=== PATIENT | male | born 1960 | race Hispanic/Latino ===

== ENCOUNTER 2017-05-13 19:27 | Emergency (ER) | payer MEDICAID, OTHER ==
--- NOTE | 2017-05-13 20:20 | ED PDOC ---
Lower Extremity Pain/Injury Time Seen by Provider: 05/13/17 20:04 Chief Complaint (Nursing): Lower Extremity Problem/Injury Chief Complaint (Provider): Lower Extremity Problem/Injury History Per: Patient History/Exam Limitations: no limitations Onset/Duration Of Symptoms: Mins (prior to arrival) Current Symptoms Are (Timing): Still Present Additional Complaint(s): 56 year old male with previous medical history of diabetes, who presents to the emergency department with a complaint of right-sided knee and ankle pain status post slipping on water and "twisting leg backwards" prior to arrival. Patient stated that he can hear crunching noise when walking but experience no pain at rest. PMD: Magali Del Cid MD Past Medical History Reviewed: Historical Data, Nursing Documentation, Vital Signs Vital Signs: Last Vital Signs Temp 98.2 F 05/13/17 19:29 Pulse 99 H 05/13/17 19:29 Resp 16 05/13/17 19:29 BP 155/90 H 05/13/17 19:29 Pulse Ox 99 05/13/17 19:29 - Medical History PMH: Diabetes - Surgical History Surgical History: Denies: No Surg Hx Other surgeries: right knee - Family History Family History: States: Unknown Family Hx - Home Medications Home Medications: Ambulatory Orders Medication Instructions Recorded Insulin Glargine,Hum.rec.anlog 40 units SUBCUT Q12 05/13/17 [Basaglar Kwikpen U-100] Liraglutide [Victoza 2-Jorge A] 1.8 mg SUBCUT DAILY 05/13/17 - Allergies Allergies/Adverse Reactions: Allergies Allergy/AdvReac Type Severity Reaction Status Date / Time No Known Allergies Allergy Verified 05/13/17 19:29 Review of Systems ROS Statement: Except As Marked, All Systems Reviewed And Found Negative Musculoskeletal: Positive for: Leg Pain (right-sided knee and ankle) Physical Exam - Reviewed Nursing Documentation Reviewed: Yes Vital Signs Reviewed: Yes - Physical Exam Extremity: Positive for: Tenderness (right-sided popliteal fossa and bilateral malleolus), Swelling (right knee significantly), Other (bilateral patella and neurovascularly intact with chronic venous stasis of right ankle). 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 Negative for: Motor/Sensory Deficits - Laboratory Results Result Diagrams: 05/13/17 22:00 05/13/17 21:20 - ECG O2 Sat by Pulse Oximetry: 99 (RA) Pulse Ox Interpretation: Normal Medical Decision Making Medical Decision Making: Initial Impression: Ligamentous strain vs. tear Initial Plan: * Xray knee (right) * Flexeril 10mg PO * Toradol 30mg iM * Xray ankle (right) ____ Time: 2009 --Equivocal valgus and varus tests secondary to significant swelling. Time: 2199 --Discussed case with Dr. Benjamin, ortho on-call, who recommended ortho- trauma specialty services that are not available at [facility]. Recommended transfer to [facility]. --Upon re-evaluation, patient is neurovascularly intact with good distal pulses. 2300 Intact pulses Patient refusing transfer to [facility], requesting transfer to [facility] 0000 Pulses remain intact Spoke with [facility] who accepts transfer, patient was able to tolerate knee immobilizer, states he felt "better" when leg was lengthened and pulled. Scribe Attestation: Documented by Torie Chaves, acting as a scribe for Louis Garcia MD. Provider Scribe Attestation: All medical record entries made by the Scribe were at my direction and personally dictated by me. I have reviewed the chart and agree that the record accurately reflects my personal performance of the history, physical exam, medical decision making, and the department course for this patient. I have also personally directed, reviewed, and agree with the discharge instructions and disposition Disposition - Clinical Impression Clinical Impression: Femoral distal fracture - Patient ED Disposition Is Patient to be Admitted: Transfer of Care - Disposition Disposition: Other Institution ([facility]) Disposition Time: 02:33 Condition: IMPROVED Forms: [employer] [facility] (Lithuanian)
[2017-05-13 21:48] LABS: BASO % 0.3 % (0.0-2.0); EOS # 0.1 K/uL (0.0-0.7); EOS % 0.5 % (0.0-4.0); HEMOGLOBIN 14.5 g/dL (12.0-18.0); LYMPH # 1.5 K/uL (1.0-4.3); LYMPH % 11.6 % (20.0-40.0); MEAN CELL VOLUME 82.7 fl (80.0-94.0); MEAN CORPUSCULAR HEMOGLOBIN 26.4 pg (27.0-31.0); MEAN PLATELET VOLUME 8.8 fl (7.2-11.7); MONO # 0.8 K/uL (0.0-0.8); MONO % 6.1 % (0.0-10.0); NEUT # 10.7 K/uL (1.8-7.0); NEUT % 81.5 % (50.0-75.0); RBC 5.5 Mil/uL (4.40-5.90); RED CELL DISTRIBUTION WIDTH 14.9 % (11.5-14.5); WHITE BLOOD COUNT 13.1 K/uL (4.8-10.8)
[2017-05-13] MEDS ORDERED: Morphine 4 MG/ML VIAL IVP STA (21:48)
[2017-05-13 22:00] LABS: BLOOD UREA NITROGEN 22 mg/dl (9-20); CALCIUM 9.4 mg/dL (8.4-10.2); GFR AFRICAN-AMERICAN > 60; GFR NON-AFRICAN AMERICAN > 60
[2017-05-13 22:11] LABS: PARTIAL THROMBOPLASTIN TIME 25.1 Seconds (25.6-37.1); PROTHROMBIN TIME 10.7 Seconds (9.8-13.1)
--- NOTE | 2017-05-13 23:17 | RAD ---
EXAM: XR Right Knee, 3 views CLINICAL HISTORY: 56 years old, male; Injury or trauma; Fall; Initial encounter; Blunt trauma; Knee; Right; Prior surgery; Surgery date: 6+ months; Surgery type: Rt. Knee @2012; Additional info: S/P slip and fall TECHNIQUE: Three views of the right knee. COMPARISON: No relevant prior studies available. FINDINGS: Bones/joints: There is an comminuted, displaced distal femoral fracture. The oblique fracture extends from the metadiaphysis to the metaphysis with overlapping fracture fragments. Surgical plate and screws transfix the proximal tibia. No dislocation. Soft tissues: Soft tissue swelling. IMPRESSION: Comminuted displaced distal femoral fracture with overlying fracture fragments
[2017-05-13] MEDS ORDERED: Morphine 4 MG/ML VIAL ONE (23:44)
[2017-05-14] MEDS ORDERED: diaZEpam 10 mg/2 ml Inj IVP ONE (00:51)
[2017-05-14] MEDS ORDERED: Midazolam 2 MG/2 ML VIAL ONE (01:04)
[2017-05-14] MEDS ORDERED: Midazolam 2 MG/2 ML VIAL IV ONE (01:12)
[2017-05-14 02:29] VITALS: BP 125/98; PULSE 88; RESP 18; TEMP 98.1
[2017-05-14 02:33] VITALS: O2SAT 99
--- NOTE | 2017-05-14 08:24 | CARD ---
APPROVED REPORT EKG Measurement Heart [id number] ME [id number] <Conclusion> Normal sinus rhythm Nonspecific T wave abnormality Abnormal ECG
--- NOTE | 2017-05-14 09:13 | RAD ---
PROCEDURE: Right Ankle Radiographs. HISTORY: s/p slip and fall COMPARISON: None FINDINGS: BONES: No acute fracture. JOINTS: Ankle mortise maintained. Talar dome intact SOFT TISSUES: Lateral malleolar soft tissue swelling. OTHER FINDINGS: Small Achilles enthesophyte. IMPRESSION: Lateral malleolar soft tissue swelling without demonstrated fracture or dislocation.
--- NOTE | 2017-05-14 09:15 | RAD ---
PROCEDURE: Right Femur Radiographs. HISTORY: fracture COMPARISON: None. TECHNIQUE: AP and Lateral Radiographs of the right femur. FINDINGS: FEMUR: Comminuted distal femoral fracture with posterior distraction of the distal fracture segment. Partially imaged proximal tibial orthopedic hardware. SOFT TISSUES: Soft tissue swelling. OTHER FINDINGS: None. IMPRESSION: Comminuted, posteriorly distracted distal femoral fracture.
--- NOTE | 2017-05-14 09:16 | RAD ---
PROCEDURE: Radiographs of the pelvis. HISTORY: s/p fall COMPARISON: None. FINDINGS: BONES: Pelvic Bones: Unremarkable. Hips: Joint space narrowing. JOINTS: Sacroiliac Joints: Unremarkable. Pubic Symphysis: Degenerative. OTHER FINDINGS: Retrievable type inferior vena cava filter. IMPRESSION: No demonstrated fracture or dislocation.
--- NOTE | 2017-05-14 09:17 | RAD ---
PROCEDURE: CHEST RADIOGRAPH, 1 VIEW HISTORY: s/p fall COMPARISON: Chest radiograph dated 07/25/2012 FINDINGS: LUNGS: Clear. PLEURA: No pneumothorax or pleural fluid seen. CARDIOVASCULAR: Normal. OSSEOUS STRUCTURES: No significant abnormalities. VISUALIZED UPPER ABDOMEN: Normal. OTHER FINDINGS: None. IMPRESSION: No active disease.
== END 2017-05-14 01:54 | disposition short-term general hospital (02) ==
LOC: H.ER 19:27 → UNDOADMIN 21:14 → H.ERHOLD 21:14 → H.ER 05-14 01:54
DX: S72.401A Unspecified fracture of lower end of right femur, initial encounter for closed fracture (principal); W01.0XXA Fall on same level from slipping, tripping and stumbling without subsequent striking against object, initial encounter; Y92.89 Other specified places as the place of occurrence of the external cause; E11.9 Type 2 diabetes mellitus without complications; Z79.4 Long term (current) use of insulin
CPT/HCPCS: 29530; 71045; 72170; 73552; 73562; 73610; 80048; 85025; 85610; 85730; 86850; 86900; 93005; 96374; 96375; 99285; J1885; J2270